=== PATIENT | male | born 1990 | race Two or more races ===

== ENCOUNTER 2019-06-07 15:12 | Emergency (ER) | payer BC ==
[~2019-06-07] VITALS: Ht 180.3 cm; Wt 93.1 kg
[2019-06-07 15:30] VITALS: BP 131/86
--- NOTE | 2019-06-07 16:32 | NUR ---
COUGH WITH SORE THROAT 2 DAYS
== END 2019-06-07 16:40 | disposition home or self-care (01) ==
LOC: ED 15:44
DX: J06.9 Acute upper respiratory infection, unspecified (principal)
CPT/HCPCS: 71045; 99283